=== PATIENT | female | born 1975 | race Caucasian/White ===

== ENCOUNTER 2018-01-25 00:10 | Emergency (ER) | payer OTHER ==
[~2018-01-25] VITALS: Ht 162.6 cm; Wt 65.8 kg
[~2018-01-25 00:10] MED LIST: HYDROCODONE-AP1 EAC6 PO; MOBIC7.5 MG PO; ROBAXIN 750 MG750 M1 PO
[2018-01-25] MEDS ORDERED: PROAIR HFA8.5 GM (00:18)
[2018-01-25] MEDS ORDERED: PREDNISONE50 MG PO (01:05)
[2018-01-25] MEDS ORDERED: DUONEB 2.5-0.5 M3 ML INH (01:05)
[2018-01-25] MEDS ORDERED: NEBULIZER MISCELL (01:05)
[2018-01-25] MEDS ORDERED: ALBUTEROL2.5 MG/31 INH (01:05)
[2018-01-25] MEDS ORDERED: PROAIR HFA8.5 GM PO (01:09)
[2018-01-25 01:12] VITALS: BP 98/67
== END 2018-01-25 01:12 | disposition home or self-care (01) ==
LOC: M.ERS 00:10
DX: J45.901 Unspecified asthma with (acute) exacerbation (principal); F17.210 Nicotine dependence, cigarettes, uncomplicated; Z88.6 Allergy status to analgesic agent; Z91.041 Radiographic dye allergy status

== ENCOUNTER 2018-03-11 18:41 | Emergency (ER) | payer OTHER ==
[~2018-03-11] VITALS: Ht 162.6 cm; Wt 68.0 kg
[~2018-03-11 18:41] MED LIST changes: +ALBUTEROL2.5 MG/31 INH; +DUONEB 2.5-0.5 M3 ML INH; +NEBULIZER MISCELL; +PREDNISONE50 MG PO; +PROAIR HFA8.5 GM; +PROAIR HFA8.5 GM PO
[2018-03-11] MEDS ORDERED: IBUPROFEN 600600 M1 PO (19:41)
[2018-03-11] MEDS ORDERED: FLEXERIL PO (19:41)
[2018-03-11 19:53] VITALS: BP 107/64
== END 2018-03-11 19:53 | disposition home or self-care (01) ==
LOC: M.ERS 18:41
DX: S50.11XA Contusion of right forearm, initial encounter (principal); J45.909 Unspecified asthma, uncomplicated; F17.210 Nicotine dependence, cigarettes, uncomplicated; Z91.041 Radiographic dye allergy status; Z88.6 Allergy status to analgesic agent; V43.52XA Car driver injured in collision with other type car in traffic accident, initial encounter; Y93.I9 Activity, other involving external motion; Y92.89 Other specified places as the place of occurrence of the external cause; Y99.8 Other external cause status

== ENCOUNTER → 2018-03-25 | Outpatient (CLI) | payer OTHER ==
[~2018-03-25] MED LIST changes: +FLEXERIL PO; +IBUPROFEN 600600 M1 PO
== END ==
LOC: M.RAD 15:31
DX: M47.812 Spondylosis without myelopathy or radiculopathy, cervical region (principal); M25.531 Pain in right wrist; M25.511 Pain in right shoulder; M79.641 Pain in right hand; V87.7XXD Person injured in collision between other specified motor vehicles (traffic), subsequent encounter

== ENCOUNTER → 2018-04-23 | Outpatient (CLI) | payer OTHER | LOC: M.MRI 06:32 | DX: S63.591A Other specified sprain of right wrist, initial encounter (principal); X58.XXXA Exposure to other specified factors, initial encounter; Y93.89 Activity, other specified; Y92.89 Other specified places as the place of occurrence of the external cause; Y99.8 Other external cause status ==

== ENCOUNTER → 2018-09-15 | Outpatient (CLI) | payer OTHER | LOC: M.CT 09:39 | DX: N20.0 Calculus of kidney (principal) ==

== ENCOUNTER → 2019-01-28 | Outpatient (CLI) | payer OTHER ==
[2019-01-28 10:20] LABS: ABSOLUTE BASOPHILS 0.1 thou/uL (0.0-0.2); ABSOLUTE EOSINOPHILS 0.3 thou/uL (0.0-0.7); ABSOLUTE LYMPHOCYTES 2.7 thou/uL (0.8-5.3); ABSOLUTE MONOCYTES 0.7 thou/uL (0.0-1.2); BASOPHILS 1.2 %; EOSINOPHILS 3.5 %; HEMOGLOBIN 13.7 gm/dL (12.0-15.0); LYMPHOCYTES 35.1 %; MCH 32.3 pg (26.0-34.0); MCHC 33.4 g/dL (28.0-37.0); MCV 96.7 fL (80.0-100.0); MONOCYTES 9.4 %; MPV 6.7 fl. (7.2-11.1); NUCLEATED RBCS 0 /100WBC; PLATELET COUNT* 402 thou/uL (150-400); POLYS 50.8 %; RBC 4.24 mil/uL (4.20-5.00); RDW-CV 14.7 % (10.5-14.5); WBC 7.8 thou/uL (4.0-11.0)
[2019-01-28 10:37] LABS: ALBUMIN 3.6 g/dL (3.4-5.0); ALKALINE PHOSPHATASE 121 U/L (46-116); ANION GAP 7 mmol/L (7-16); BUN 11 mg/dL (7-18); CHLORIDE 105 mmol/L (98-107); CO2 29 mmol/L (21-32); CREATININE 0.6 mg/dL (0.6-1.3); GLUCOSE 87 mg/dL (70-99); POTASSIUM 3.6 mmol/L (3.5-5.1); SERUM ASSESSMENT Clear; SGOT 22 U/L (15-37); SGPT 25 U/L (30-65); SODIUM 141 mmol/L (136-145); TOTAL BILIRUBIN 0.2 mg/dL (<0.1-1.0); TOTAL PROTEIN 7.9 g/dL (6.4-8.2)
[2019-01-28 10:52] LABS: CHOLESTEROL 140 mg/dL (<200); HDL CHOLESTEROL 75 mg/dL (>40); LDL CHOLESTEROL 57 mg/dL (<100); TC:HDL 1.9 Ratio (Not establshd); TRIGLYCERIDE 41 mg/dL (<150); VLDL 8 mg/dL (<40)
== END ==
LOC: M.LAB 09:56
PROVIDERS: Family Medicine
DX: K90.9 Intestinal malabsorption, unspecified (principal); M25.551 Pain in right hip; M25.552 Pain in left hip

== ENCOUNTER → 2019-02-03 | Outpatient (CLI) | payer OTHER ==
[2019-02-05 16:11] LABS: ANA INTERPRETATION Negative (Negative)
== END ==
LOC: M.LAB 06:08
PROVIDERS: Family Medicine
DX: R74.8 Abnormal levels of other serum enzymes (principal)